=== PATIENT | female | born 1995 | race Caucasian/White ===

== ENCOUNTER → 2022-12-16 | Outpatient (REF) | LOC: M LAB 11:17 | PROVIDERS: ATTEND Nurse Practitioner Adult Health | DX: Z11.1 Encounter for screening for respiratory tuberculosis (principal) ==

== ENCOUNTER → 2023-05-24 | Outpatient (CLI) | payer OTHER ==
[2023-05-24 18:27] LABS: HEMATOCRIT 36.9 % (36.0-47.0); HEMOGLOBIN 12.7 g/dl (12.0-15.5); MEAN CORPUSCULAR HEMOGLOBIN 30.7 pg (27.0-33.0); MEAN CORPUSCULAR HGB CONC 34.4 g/dl (32.0-36.5); MEAN CORPUSCULAR VOLUME 89.1 fl (80.0-96.0); PLATELET COUNT, AUTOMATED 218 10^3/uL (150-450); RED BLOOD COUNT 4.14 10^6/uL (4.00-5.40)
[2023-05-24 19:34] LABS: GC DNA AMPLIFICATION NEGATIVE (NEGATIVE)
[2023-05-25 00:29] LABS: HIV 1&2 SCREEN NEGATIVE (NEGATIVE)
[2023-05-25 00:38] LABS: HEPATITIS C VIRUS ABY INDEX 0.06 INDEX (<0.8)
== END ==
LOC: M PLALAB 15:08
PROVIDERS: ATTEND Specialist
DX: Z36.9 Encounter for antenatal screening, unspecified (principal)

== ENCOUNTER → 2023-06-08 | Outpatient (CLI) | payer OTHER | LOC: M PLALAB 15:31 | PROVIDERS: ATTEND Specialist | DX: Z34.01 Encounter for supervision of normal first pregnancy, first trimester (principal) ==

== ENCOUNTER → 2023-08-09 | Outpatient (CLI) | payer OTHER | LOC: M WHC 08:33 | PROVIDERS: ATTEND Advanced Practice Midwife | DX: O00.01 Abdominal pregnancy with intrauterine pregnancy (principal) ==

== ENCOUNTER → 2023-08-30 | Outpatient (CLI) | payer OTHER | LOC: M WHC 10:11 | PROVIDERS: ATTEND Advanced Practice Midwife | DX: Z34.02 Encounter for supervision of normal first pregnancy, second trimester (principal) ==

== ENCOUNTER → 2023-09-16 | Outpatient (CLI) | payer OTHER | LOC: M WHC 10:48 | PROVIDERS: ATTEND Advanced Practice Midwife | DX: Z34.02 Encounter for supervision of normal first pregnancy, second trimester (principal) ==

== ENCOUNTER → 2023-09-30 | Outpatient (CLI) | payer OTHER ==
[2023-09-30 13:07] LABS: HEMATOCRIT 36.9 % (36.0-47.0); HEMOGLOBIN 12.5 g/dl (12.0-15.5); MEAN CORPUSCULAR HEMOGLOBIN 30.9 pg (27.0-33.0); MEAN CORPUSCULAR HGB CONC 33.9 g/dl (32.0-36.5); MEAN CORPUSCULAR VOLUME 91.1 fl (80.0-96.0); PLATELET COUNT, AUTOMATED 199 10^3/uL (150-450); RED BLOOD COUNT 4.05 10^6/uL (4.00-5.40); WHITE BLOOD COUNT 10.9 10^3/uL (4.0-10.0)
== END ==
LOC: M PLALAB 09:44
PROVIDERS: ATTEND Advanced Practice Midwife
DX: Z34.02 Encounter for supervision of normal first pregnancy, second trimester (principal)

== ENCOUNTER → 2023-11-03 | Outpatient (CLI) | payer OTHER ==
[2023-11-03 15:23] LABS: HEMOGLOBIN 12.3 g/dl (12.0-15.5); MEAN CORPUSCULAR HGB CONC 34.2 g/dl (32.0-36.5); MEAN CORPUSCULAR VOLUME 90.7 fl (80.0-96.0); PLATELET COUNT, AUTOMATED 171 10^3/uL (150-450); RED BLOOD COUNT 3.97 10^6/uL (4.00-5.40); WHITE BLOOD COUNT 11.2 10^3/uL (4.0-10.0)
[2023-11-03 15:43] LABS: TOTAL PROTEIN,RANDOM URINE 6.2 MG/DL (0.0-14.0)
[2023-11-03 15:45] LABS: URIC ACID 2.9 MG/DL (3.1-7.8)
[2023-11-03 15:47] LABS: CREATININE,RANDOM URINE 40.2 MG/DL; LDH LACTATE DEHYDROGENASE 145 U/L (120-246)
[2023-11-03 15:48] LABS: ALT/SGPT < 9 U/L (7.0-40); AST/SGOT 9 U/L (<34); BILIRUBIN,TOTAL 0.5 MG/DL (0.3-1.2); CREATININE FOR GFR 0.63 MG/DL (0.55-1.30); GLOMERULAR FILTRATION RATE > 60.0 (>60)
== END ==
LOC: M PLALAB 14:27
PROVIDERS: ATTEND Advanced Practice Midwife
DX: Z34.03 Encounter for supervision of normal first pregnancy, third trimester (principal)

== ENCOUNTER → 2023-12-03 | Outpatient (REF) | payer OTHER | LOC: M PLALAB 08:04 | PROVIDERS: ATTEND Advanced Practice Midwife | DX: Z36.89 Encounter for other specified antenatal screening (principal); Z3A.36 36 weeks gestation of pregnancy ==

== ENCOUNTER → 2023-12-10 | Outpatient (CLI) | payer OTHER ==
[~2023-12-10] MED LIST: PRENTAB9 PO
[2023-12-10 10:18] LABS: HEMATOCRIT 40.3 % (36.0-47.0); HEMOGLOBIN 13.8 g/dl (12.0-15.5); MEAN CORPUSCULAR HGB CONC 34.2 g/dl (32.0-36.5); MEAN CORPUSCULAR VOLUME 90.6 fl (80.0-96.0); PLATELET COUNT, AUTOMATED 182 10^3/uL (150-450); RED BLOOD COUNT 4.45 10^6/uL (4.00-5.40); WHITE BLOOD COUNT 10.6 10^3/uL (4.0-10.0)
[2023-12-10 10:41] LABS: TOTAL PROTEIN,RANDOM URINE 6.6 MG/DL (0.0-14.0)
[2023-12-10 10:45] LABS: URIC ACID 3.7 MG/DL (3.1-7.8)
[2023-12-10 10:47] LABS: CREATININE,RANDOM URINE 33.2 MG/DL; LDH LACTATE DEHYDROGENASE 158 U/L (120-246)
[2023-12-10 10:48] LABS: ALT/SGPT 10 U/L (7.0-40); AST/SGOT 12 U/L (<34); BILIRUBIN,TOTAL 0.7 MG/DL (0.3-1.2); CREATININE FOR GFR 0.65 MG/DL (0.55-1.30); GLOMERULAR FILTRATION RATE > 60.0 (>60)
== END ==
LOC: M PLALAB 08:52
PROVIDERS: ATTEND Advanced Practice Midwife
DX: O16.3 Unspecified maternal hypertension, third trimester (principal)

== ENCOUNTER 2023-12-13 07:33 | Inpatient (IN) | payer OTHER ==
[2023-12-13] VITALS (21 sets, daily range): BP systolic 106–146; BP diastolic 51–93
[~2023-12-13] VITALS: Ht 170.2 cm; Wt 102.2 kg
[2023-12-13] MEDS ORDERED: PRENTAB9 PO (07:54)
[2023-12-13] MEDS ORDERED: HOME MED LIST COMPLETE! XX SCH (07:55)
[2023-12-13] MEDS ORDERED: LIDOCAINE 1% MDV 20ML VIAL INFIL PRN (08:10)
[2023-12-13] MEDS ORDERED: CARBOPROST TROMETHAMINE 250 MCG/ML AMP IM PRN (08:10)
[2023-12-13] MEDS ORDERED: OXYTOCIN INJ 10UNITS/ML 1ML VIAL IM PRN (08:10)
[2023-12-13] MEDS: miSOPROStol 50MCG 1/2 TABLET PO SCH (08:37)
[2023-12-13 08:54] LABS: HEMATOCRIT 38.7 % (36.0-47.0); HEMOGLOBIN 13.3 g/dl (12.0-15.5); MEAN CORPUSCULAR HEMOGLOBIN 30.8 pg (27.0-33.0); MEAN CORPUSCULAR HGB CONC 34.4 g/dl (32.0-36.5); MEAN CORPUSCULAR VOLUME 89.6 fl (80.0-96.0); PLATELET COUNT, AUTOMATED 181 10^3/uL (150-450); RED BLOOD COUNT 4.32 10^6/uL (4.00-5.40); WHITE BLOOD COUNT 9.6 10^3/uL (4.0-10.0)
[2023-12-13 09:19] LABS: CREATININE,RANDOM URINE 14.6 MG/DL
[2023-12-13 09:21] LABS: TOTAL PROTEIN,RANDOM URINE < 6.0 MG/DL (0.0-14.0)
[2023-12-13 09:56] LABS: HEPATITIS C VIRUS ABY INDEX < 0.02 INDEX (<0.8)
[2023-12-13] MEDS: OXYTOCIN DRIP 30 UNITS in IV 1 EA IV SCH (16:12)
[2023-12-13] MEDS: LR 1,000 ML IV SCH (16:13)
[2023-12-14] VITALS (51 sets, daily range): BP systolic 103–157; BP diastolic 52–91
[2023-12-14] MEDS: miSOPROStol 50MCG 1/2 TABLET PO ONE ×2 (01:00→06:46)
[2023-12-14] MEDS: miSOPROStol 50MCG 1/2 TABLET PO SCH (12:44)
[2023-12-14 16:15] LABS: HEMOGLOBIN 13.6 g/dl (12.0-15.5); MEAN CORPUSCULAR HEMOGLOBIN 30.6 pg (27.0-33.0); MEAN CORPUSCULAR VOLUME 89.9 fl (80.0-96.0); PLATELET COUNT, AUTOMATED 199 10^3/uL (150-450); RED BLOOD COUNT 4.45 10^6/uL (4.00-5.40); WHITE BLOOD COUNT 13.3 10^3/uL (4.0-10.0)
[2023-12-14 16:39] LABS: URIC ACID 3.5 MG/DL (3.1-7.8)
[2023-12-14 16:41] LABS: LDH LACTATE DEHYDROGENASE 177 U/L (120-246)
[2023-12-14 16:42] LABS: ALT/SGPT 10 U/L (7.0-40); AST/SGOT 12 U/L (<34); BILIRUBIN,TOTAL 0.7 MG/DL (0.3-1.2); CREATININE FOR GFR 0.68 MG/DL (0.55-1.30); GLOMERULAR FILTRATION RATE > 60.0 (>60)
[2023-12-14] MEDS: LACTATED RINGER'S 1000 ML IV STA (16:47)
[2023-12-14] MEDS ORDERED: NALOXONE INJ 0.4MG/1ML VIAL IV PRN (17:20)
[2023-12-14] MEDS ORDERED: EPIDURAL/PCA KEYS XX PRN (17:20)
[2023-12-14] MEDS ORDERED: LR 500 ML IV PRN (17:20)
[2023-12-14] MEDS ORDERED: diphenhydrAMINE 50MG/ML VIAL IV PRN (17:20)
[2023-12-14] MEDS: FENTANYL/ROPIVACAINE/NACL BAG 100 ML EPIDURAL SCH (17:49)
[2023-12-14] MEDS: ePHEDrine SULFATE 25 MG/5 ML(5MG/ML) SYRINGE IVP PRN (18:29)
[2023-12-15] VITALS (41 sets, daily range): BP systolic 103–150; BP diastolic 55–82; O2SAT 98–99
[2023-12-15] MEDS: ePHEDrine SULFATE 25 MG/5 ML(5MG/ML) SYRINGE IVP PRN (01:08)
[2023-12-15] MEDS: ONDANSETRON 4MG 2ML VIAL IV PRN (05:16)
[2023-12-15] MEDS: OXYTOCIN DRIP 30 UNITS in IV 1 EA IV PRN (07:19)
[2023-12-15] MEDS: TRANEXAMIC ACID INJection 1,000 MG in NS 100 ML IV PRN (07:19)
[2023-12-15] MEDS ORDERED: IBUPROFEN 600MG TAB PO PRN (08:05)
[2023-12-15] MEDS ORDERED: DIBUCAINE 1% OINTMENT 30GM TOP PRN (08:05)
[2023-12-15] MEDS ORDERED: ANUSOL HC CREAM 30GM TOP PRN (08:05)
[2023-12-15] MEDS ORDERED: RHO(D) IMMUNE GLOBULIN/MALTOSE 500MCG(2500IU)/2.2ML VIAL (WINRHO) IM SCH (08:05)
[2023-12-15] MEDS ORDERED: ACETAMINOPHEN TAB 650MG DOSE (2X325MG) PO PRN (08:05)
[2023-12-15] MEDS ORDERED: MOM 30ML SUSPENSION UDC PO PRN (08:05)
[2023-12-15] MEDS: PRENATAL VITAMINS CHEWABLE TABLET PO SCH (09:00)
[2023-12-15] MEDS: ACETAMINOPHEN 500 MG TAB PO PRN (14:13)
[2023-12-15] MEDS: IBUPROFEN 800 MG TAB PO PRN (18:35)
[2023-12-15] MEDS: DOCUSATE SODIUM 100MG CAPSULE PO PRN (20:22)
[2023-12-16 06:00] VITALS: BP 135/75; O2SAT 100
[2023-12-17] MEDS ORDERED: MEASLES,MUMPS,RUBELLA VACCINE INJ (MMR-II) SC.IMMUN ONE (09:00)
== END 2023-12-16 12:20 | disposition home or self-care (01) | DRG 807 ==
LOC: M LDI 07:33 → M OBS 12-15 10:04
PROVIDERS: ADMIT Advanced Practice Midwife; ATTEND Advanced Practice Midwife
PROC: 3E033VJ Introduction of Other Hormone into Peripheral Vein, Percutaneous Approach (ICD-10-PCS; 2023-12-13)
PROC: 3E0P7VZ Introduction of Hormone into Female Reproductive, Via Natural or Artificial Opening (ICD-10-PCS; 2023-12-13)
PROC: 10E0XZZ Delivery of Products of Conception, External Approach (ICD-10-PCS; principal; 2023-12-15)
PROC: 0HQ9XZZ Repair Perineum Skin, External Approach (ICD-10-PCS; 2023-12-15)
PROC: 10907ZC Drainage of Amniotic Fluid, Therapeutic from Products of Conception, Via Natural or Artificial Opening (ICD-10-PCS; 2023-12-15)
DX: O13.4 Gestational [pregnancy-induced] hypertension without significant proteinuria, complicating childbirth (principal); Z37.0 Single live birth; Z3A.37 37 weeks gestation of pregnancy; O69.82X0 Labor and delivery complicated by other cord entanglement, without compression, not applicable or unspecified; O70.0 First degree perineal laceration during delivery